=== PATIENT | female | born 1945 | race Caucasian/White ===

== ENCOUNTER → 2020-10-17 10:32 | Outpatient (ROUT) | payer MEDICARE, OTHER, SELFPAY ==
[2020-10-17 10:55] LABS: COVID19 -Nasal RAPID Negative (Negative)
== END ==
PROVIDERS: Visit Provider Physician Assistant
DX: Z20.822 Contact with and (suspected) exposure to COVID-19 (principal)
CPT/HCPCS: 87635

== ENCOUNTER 2023-03-04 16:24 | Emergency (ER) | payer MEDICARE, SELFPAY ==
[2023-03-04 16:36] VITALS: BP 147/74; PULSE 86; RESP 16; TEMP 36.4; O2SAT 98; BMI 21.6
[2023-03-04 18:19] VITALS: BP 128/62; PULSE 76; RESP 18; TEMP 36.8; O2SAT 99
--- NOTE | 2023-03-04 18:54 | ED.SKABFB ---
HPI - Skin/Abscess/Foreign Bdy <Vinh Avery PA-C - Last Filed: 03/04/23 18:59> General Chief complaint: Skin/Abscess/Foreign Body Stated complaint: Rash on R/chest and neck/thinks shingles Time Seen by Provider: 03/04/23 18:25 History of Present Illness HPI narrative: 77-year-old female presents to the ED with a diffuse skin rash on the torso. And complains of 2 days of rash on her bilateral shoulders, right chest, nape of neck. Describes the rash as itchy and dry. No new cosmetics, lotions, detergents. No known allergies. Patient has a history of 3 prior shingles outbreaks and is concerned that she might be having another outbreak this time. Patient took a shingles vaccine 2 weeks ago. Denies mucosal involvement. Denies fevers, chills, nausea, vomiting. Related Data Home Medications Medication Instructions Recorded Confirmed Hydrocodone-APAP PO 10/17/20 metformin PO 10/17/20 simvastatin PO 10/17/20 10/17/20 Previous Rx's Medication Instructions Recorded triamcinolone acetonide 0.025 % 1 applic topical TID #454 grams 03/04/23 topical ointment Allergies Allergy/AdvReac Type Severity Reaction Status Date / Time No Known Drug Allergies Allergy Unverified 10/17/20 10:17 Review of Systems <Vinh Avery PA-C - Last Filed: 03/04/23 18:59> Constitutional Constitutional: Denies chills, Denies fatigue, Denies fever(s), Denies frequent falls, Denies lethargy and Denies weakness Eyes Eyes: Denies change in vision, Denies eye discharge, Denies irritation and Denies loss of vision ENT Ears, Nose, Mouth, and Throat: Denies change in voice, Denies dizziness, Denies neck pain, Denies sore throat and Denies throat swelling Cardiovascular Cardiovascular: Denies chest pain, Denies irregular heart rhythm, Denies lightheadedness, Denies palpitations, Denies dyspnea, Denies dyspnea on exertion and Denies orthopnea Respiratory Respiratory: Denies cough, Denies dyspnea, Denies dyspnea on exertion and Denies wheezing Gastrointestinal Gastrointestinal: Denies abdominal pain, Denies change in bowel habits, Denies diarrhea, Denies nausea and Denies vomiting Musculoskeletal Musculoskeletal: Denies neck pain and Denies numbness Integumentary/Breasts Skin/Breast: Denies pruritus, Denies erythema, Reports rash and Denies wounds Neurologic Neurologic: Denies behavioral changes, Denies confusion, Denies dizziness, Denies frequent falls, Denies loss of vision, Denies numbness and Denies weakness Psychiatric Psychiatric: Denies anxiety, Denies behavioral changes, Denies confusion, Denies depression, Denies homicidal ideation and Denies suicidal ideation Endocrine Endocrine: Denies fatigue, Denies flushing and Denies palpitations Hematologic/Lymphatic Hematologic/Lymphatic: Denies easy bruising Allergic/Immunologic Allergic/Immunologic: Denies urticaria, Denies throat swelling and Denies wheezing Patient History <Vinh Avery PA-C - Last Filed: 03/04/23 18:59> Social History Smoking Status: Former smoker Smoking Status: Former smoker Exam <Vinh Avery PA-C - Last Filed: 03/04/23 18:59> Narrative Exam Narrative: Const General:?cooperative, healthy appearing and comfortable [facility] Head:?normal to inspection Ears:?hearing grossly normal bilaterally Nose:?external nose normal Face and sinus:?normal facial exam and sinuses nontender Mouth:?oral mucosae normal Throat:?posterior oropharynx normal Eyes General:?appearance normal, both eyes and all related structures Neck Neck:?normal visual inspection and no lymphadenopathy noted Resp Effort & Inspection:?normal respiratory effort Auscultation:?clear to auscultation bilaterally Cardio Rate:?regular rate Rhythm:?regular rhythm Integumentary There is a diffuse, discrete, raised, erythematous rash on bilateral shoulders, nape of neck, right chest. Most consistent with contact dermatitis versus atopic rash. No signs of superimposed bacterial infection. Neuro General:?patient alert, patient awake and patient oriented x3 Initial Vital Signs Initial Vital Signs: Vital Signs Temperature 97.6 F 03/04/23 16:36 Pulse Rate 86 03/04/23 16:36 Respiratory Rate 16 03/04/23 16:36 Blood Pressure 147/74 H 03/04/23 16:36 Pulse Oximetry 98 03/04/23 16:36 Oxygen Delivery Method Room Air 03/04/23 16:36 <Janett Allen DO - Last Filed: 03/05/23 13:32> Initial Vital Signs Initial Vital Signs: Vital Signs Temperature 97.6 F 03/04/23 16:36 Pulse Rate 86 03/04/23 16:36 Respiratory Rate 16 03/04/23 16:36 Blood Pressure 147/74 H 03/04/23 16:36 Pulse Oximetry 98 03/04/23 16:36 Oxygen Delivery Method Room Air 03/04/23 16:36 Course <Vinh Avery PA-C - Last Filed: 03/04/23 18:59> Vital Signs Vital signs: Vital Signs - 8 hr 03/04/23 16:36 03/04/23 18:19 Temperature 97.6 F 98.2 F Pulse Rate 86 76 Respiratory Rate 16 18 Blood Pressure 147/74 H 128/62 Pulse Oximetry 98 99 Oxygen Delivery Method Room Air Room Air <Janett Allen DO - Last Filed: 03/05/23 13:32> Vital Signs Vital signs: Vital Signs - 8 hr 03/04/23 16:36 03/04/23 18:19 Temperature 97.6 F 98.2 F Pulse Rate 86 76 Respiratory Rate 16 18 Blood Pressure 147/74 H 128/62 Pulse Oximetry 98 99 Oxygen Delivery Method Room Air Room Air MDM - Skin/Abscess/Foreign Bdy <Vinh Avery PA-C - Last Filed: 03/04/23 18:59> MDM Narrative Medical decision making narrative: 77-year-old female presents to the ED with a diffuse skin rash on the torso. Concern for atopic dermatitis versus contact dermatitis versus other. Given that the rash does not follow a dermatomal distribution, unlikely shingles. Prescribed corticosteroid ointment. Discussed findings with patient. Recommend follow-up with PCP and manufacturing storeperson. ED return precautions were discussed with patient. Patient verbalized understanding. Medical records reviewed: Yes Discharge Plan Departure Patient Disposition: Home Clinical Impression: Rash Instructions: DI for Atopic Dermatitis-Adult Activity Restrictions/Additional Instructions: You were evaluated in the ED today for a rash. You are being prescribed a steroid medication to apply on the rash. Please follow-up with your PCP and manufacturing storeperson if the rash does not improve over the next few days. Return to the ED if you have worsening symptoms. Prescriptions: New triamcinolone acetonide 0.025 % ointment 1 applic topical TID Qty: 454 0RF No Action metformin PO Hydrocodone-APAP PO simvastatin PO Referrals: Miscellaneous,Doctor, [Primary Care Provider] - Stand Alone Forms: Patient Portal/API ED Sign-out <Janett Allen DO - Last Filed: 03/05/23 13:32> Cosign ED Attending Joseline Attestation: I was available for consultation.
--- NOTE | 2023-03-04 19:11 | PC.NURSE ---
Pt evaluated and discharged prior to RN examination.
== END 2023-03-04 19:10 | disposition home or self-care (01) ==
PROVIDERS: Emergency Provider Student in an Organized Health Care Education/Training Program
DX: R21 Rash and other nonspecific skin eruption (principal)
CPT/HCPCS: 99281; 99282

== ENCOUNTER → 2023-10-09 11:25 | Outpatient (CLI) | payer MEDICARE, SELFPAY ==
[2023-10-09 16:40] LABS: Hematocrit 36.6 % (36-46); Hemoglobin 12.5 g/dL (12.0-16.0); Mean Corpuscular Hemoglobin 30.2 PG (26-34); Mean Corpuscular Volume 88.8 fL (80-100); Platelet Count 307 X10^3/uL (150-400); Red Blood Cell Count 4.13 X10^6/uL (4.0-5.2); Red Cell Distribution Width 13.4 % (11.6-14.8); White Blood Cell Count 8.7 X10^3/uL (4.5-11.0)
[2023-10-09 16:47] LABS: Hemoglobin A1C% w Est Avg Glu 7.6 % (4.0-6.0)
[2023-10-09 16:56] LABS: Alanine Aminotransferase 32 IU/L (<35); Albumin 4.1 g/dL (3.5-5.0); Albumin Globulin Ratio 1.4 (1.0-2.8); Alkaline Phosphatase 64 U/L (38-126); Aspartate Aminotransferase 31 IU/L (14-36); BUN Creatinine Ratio 19.8 (6-22); Bilirubin Total 0.7 mg/dL (0.2-1.3); Blood Urea Nitrogen 21 mg/dL (7-17); Calcium 10.5 mg/dL (8.4-10.2); Carbon Dioxide 25 mmol/L (22-32); Chloride 104 mmol/L (98-107); Cholesterol 121 mg/dL (140-199); Estimated Glomerular Filt Rate 54 mL/min (>60); Globulin 2.9 g/dL (1.7-4.1); Glucose 161 mg/dL (80-110); HDL Cholesterol 55 mg/dL (40-60); HEMOLYSIS < 15 (0-50); LDL Cholesterol Calculated 28 mg/dL (<100); Potassium 4.5 mmol/L (3.4-5.1); Sodium 139 mmol/L (137-145); Triglycerides 188 mg/dL (35-150)
[2023-10-09 16:57] LABS: Creatinine Urine Random 211.37 mg/dL
[2023-10-09 17:00] LABS: Microalbumin Urine Random 1.6 mg/dL (0-1.6)
[2023-10-09 17:26] LABS: TSH w/ Reflex to FT4 1.25 uIU/mL (0.47-4.68)
== END ==
PROVIDERS: PCP Internal Medicine; Referring Provider Internal Medicine; Visit Provider Internal Medicine
DX: E11.69 Type 2 diabetes mellitus with other specified complication (principal); E78.5 Hyperlipidemia, unspecified; E78.2 Mixed hyperlipidemia; N18.31 Chronic kidney disease, stage 3a
CPT/HCPCS: 36415; 80053; 80061; 82043; 82570; 83036; 84443; 85027

== ENCOUNTER 2024-01-24 12:41 | Emergency (ER) | payer MEDICARE, SELFPAY ==
[2024-01-24] VITALS (8 sets, daily range): BP systolic 105–153; BP diastolic 60–71; PULSE 74–98; RESP 18; TEMP 36.4; O2SAT 96–98; BMI 25.0
--- NOTE | 2024-01-24 12:47 | ED_ITS ---
HPI - General Adult General Chief complaint: Diabetic Problem Stated complaint: covid+, low blood sugar, diabetic problem Time Seen by Provider: 01/24/24 12:47 History of Present Illness HPI narrative: 78-year-old woman with a history of diabetes and recent diagnosis of COVID currently on day 5 of lo. Medics were out to her house last night with complaints of hypoglycemia. Reportedly she was slow to respond to carbohydrates given. She comes in today and states she has simply not feeling well, fuzzy in the head feels that she can not focus appropriately. Oxygen saturations are 98% on room air. Blood sugar was 173. She notes that with the COVID she has been eating significantly less as she tends to sleep through most of her meals. She also notes that she got a new blood glucose meter and is not sure how to work it. She has not been checking sugars recently because of this. Related Data Home Medications Medication Instructions Recorded Confirmed acetaminophen 500 mg oral powder 500 mg PO Q6H PRN 10/09/23 01/07/24 packet (Tylenol Extra Strength) Previous Rx's Medication Instructions Recorded triamcinolone acetonide 0.025 % 1 applic topical TID #454 grams 03/04/23 topical ointment diphenhydramine HCl 25 mg capsule 25 mg PO TID PRN itching #30 caps 03/22/23 (Benadryl) atorvastatin 80 mg tablet 80 mg PO DAILY #90 tabs 10/09/23 glipizide 5 mg tablet 5 mg PO BID #180 tabs 10/09/23 glipizide 5 mg-metformin 500 mg 1 tab PO BID #180 tabs 10/09/23 tablet blood sugar diagnostic (Blood #50 ea 01/07/24 Glucose Test strips) blood-glucose meter #1 ea 01/07/24 lancets #100 ea 01/17/24 Allergies Allergy/AdvReac Type Severity Reaction Status Date / Time No Known Drug Allergies Allergy Verified 01/24/24 13:01 Review of Systems Review of Systems Narrative: Pertinent positive and negative findings as per HPI Patient History Medical History Stage 3a chronic kidney disease (CKD) History of Clostridioides difficile colitis Onychomycosis Elevated LFTs Proteinuria Mixed hyperlipidemia DM type 2 with diabetic dyslipidemia Social History details: Partner (Leonides/John Luo), 1 son, retired women's ministry director Smoking Status: Former smoker Smoking Status: Former smoker Exam Initial Vital Signs Initial Vital Signs: Vital Signs Temperature 97.5 F L 01/24/24 12:41 Pulse Rate 98 H 01/24/24 12:41 Respiratory Rate 18 01/24/24 12:41 Blood Pressure 153/71 H 01/24/24 12:41 Pulse Oximetry 98 01/24/24 12:41 Oxygen Delivery Method Room Air 01/24/24 12:41 General: in no acute distress. Able to give a complete and coherent history. Well-nourished well-developed HEENT: Moist mucous membranes, normal sclera with reactive pupils, Respiratory: Lungs are clear to auscultation, no wheezing no rales no rhonchi. Full and symmetrical air movement Cardiac: Regular rate and rhythm no murmurs no bruits Abdomen: Soft, nontender, good bowel tones, no flank pain Skin: Warm and dry, no rashes Neurologic: Grossly neurologically intact with no obvious asymmetries or abnormalities Extremities: No trauma, well perfused, no lower extremity edema Psych: Cooperative, appropriate insight and affect Course Orders Ordered: ED Orders 01/24/24 12:56 XR chest 1V Stat Urinalysis and Microscopic Stat 01/24/24 13:00 Complete Blood Count AUTO DIFF Stat Comprehensive Metabolic Panel Stat NT-proBNP (BNP-Adult 18+) Stat Troponin I Stat Vital Signs Vital signs: Vital Signs - 8 hr 01/24/24 12:41 01/24/24 13:28 01/24/24 13:30 Temperature 97.5 F L Pulse Rate 98 H 79 75 Respiratory Rate 18 Blood Pressure 153/71 H Pulse Oximetry 98 96 97 Oxygen Delivery Method Room Air 01/24/24 13:31 01/24/24 13:31 01/24/24 14:00 Temperature Pulse Rate 78 Respiratory Rate Blood Pressure 105/60 125/64 Pulse Oximetry 97 Oxygen Delivery Method 01/24/24 14:00 01/24/24 14:30 01/24/24 14:30 Temperature Pulse Rate 75 75 Respiratory Rate Blood Pressure 124/63 Pulse Oximetry 96 96 Oxygen Delivery Method Medical Decision Making Lab Data 01/24/24 13:00 01/24/24 13:00 Labs: Lab Results 01/24/24 Range/Units 13:00 WBC 5.7 (4.5-11.0) X10^3/uL RBC 4.33 (4.0-5.2) X10^6/uL Hgb 12.8 (12.0-16.0) g/dL Hct 38.5 (36-46) % MCV 88.9 (80-100) fL MCH 29.6 (26-34) PG MCHC 33.3 (30-36) % RDW 13.2 (11.6-14.8) % Plt Count 291 (150-400) X10^3/uL Neut % (Auto) 59.2 (50-75) % Lymph % (Auto) 30.0 (25-40) % Steele % (Auto) 9.0 (3-14) % Eos % (Auto) 1.4 L (2-4) % Baso % (Auto) 0.4 (0-2) % Neut # (Auto) 3400 (8825-7882) /uL Lymph # (Auto) 1700 (3724-2561) /uL Steele # (Auto) 500 (0-900) /uL Eos # (Auto) 100 (0-450) /uL Baso # (Auto) 0 (0-100) /uL Sodium 138 (137-145) mmol/L Potassium 3.8 (3.4-5.1) mmol/L Chloride 101 (98-107) mmol/L Carbon Dioxide 28 (22-32) mmol/L BUN 18 H (7-17) mg/dL Creatinine 1.12 H (0.52-1.04) mg/dL Estimated GFR 51 L (>60) mL/min BUN/Creatinine Ratio 16.1 (6-22) Glucose 172 H (80-110) mg/dL Calcium 10.3 H (8.4-10.2) mg/dL Total Bilirubin 0.6 (0.2-1.3) mg/dL AST 37 H (14-36) IU/L ALT 35 H (<35) IU/L Alkaline Phosphatase 58 (38-126) U/L Troponin I < 0.012 (0.01-0.034) ng/mL NT-Pro-B Natriuret Pep 34 (<450) pg/mL Total Protein 7.1 (6.3-8.2) g/dL Albumin 4.3 (3.5-5.0) g/dL Globulin 2.8 (1.7-4.1) g/dL Albumin/Globulin Ratio 1.5 (1.0-2.8) MDM Narrative Medical decision making narrative: CC: Low blood sugars, fuzzy feeling Complicating co-morbidities: On day 5 of Paxlovid for COVID diagnosis, he has never had a low blood sugar before last night, has been taking normal amounts of glipizide and Glucophage with significant decreased intake due to loss of appetite with the COVID, new blood sugar monitor that she has not been able to use Data collected from: patient, Medical records reviewed: Primary care notes reviewing diabetes and hyperlipidemia are reviewed Differential considered: Fatigue secondary to COVID, medication interactions, decreased oral intake and lower blood sugars Exam documented above, pertinent findings include: Patient appears fatigued but is not acutely ill. No signs of stroke. Lab Test results independently reviewed as above. Pertinent findings: CBC is unremarkable Chemistries show mild bump in creatinine from 1-1.12, glucose is at 172, AST and ALT are At 37 and 35 respectively. Troponin is undetectable ProBNP is low Imaging studies independently reviewed: Chest x-ray is unremarkable Treatments: We asked patient to bring in her blood glucose monitoring and she and her were both instructed on its use Discussion: 78-year-old woman with COVID, last day of Paxlovid, fuzzy feeling in her head with no acute abnormalities otherwise appreciated. Electrolytes are unremarkable. There was no sign of bacterial secondary infection no signs of impending respiratory distress and no suggested of lobar pneumonia. I suspect that the minimal eating that she has had over the last couple of days with religiously taking her medications as prescribed as what caused the episode of hypoglycemia last night we will ask her to either eat more or hold her evening dose of glipizide until she is feeling better. Findings reviewed with the patient, questions are answered there was no indication for additional imaging or hospitalization and she is safe for discharge Discharge Plan Departure Patient Disposition: Home Clinical Impression: COVID-19, Hypoglycemia associated with diabetes Fatigue Qualifiers: Fatigue type: unspecified Qualified Code(s): R53.83 - Other fatigue Activity Restrictions/Additional Instructions: Thank you for coming in today I think that you are feeling yucky because you have been sick with COVID, you are taking Paxlovid, you have not been eating enough and you had an episode of low blood sugar because of all of those. I am not seeing any evidence of bacterial infection, severe COVID infection that would require oxygen or hospitalization, heart attack, kidney problems, liver problems, electrolyte abnormalities. Until you are feeling better and back to regular eating, please do not take your nighttime glipizide. Do continue the rest of your medications I hope we were able to help you better understand your blood glucose monitor so you are able to regularly check your sugars If you find that you are getting worse or develop any new symptoms, please feel free to return to the emergency department for further evaluation. Prescriptions: No Action diphenhydramine HCl [Benadryl] 25 mg capsule 25 mg PO TID PRN (Reason: itching) Qty: 30 0RF (DME) lancets Misc See Rx Instructions .Route Qty: 100 3RF Rx Instructions: to check blood sugar daily Tylenol Extra Strength 500 mg powder in packet 500 mg PO Q6H PRN glipizide-metformin 5-500 mg tablet 1 tab PO BID Qty: 180 3RF glipizide 5 mg tablet 5 mg PO BID Qty: 180 3RF atorvastatin 80 mg tablet 80 mg PO DAILY Qty: 90 3RF (DME) blood-glucose meter Misc See Rx Instructions .Route Qty: 1 0RF Rx Instructions: check BG daily (DME) Blood Glucose Test Strip See Rx Instructions .Route Qty: 50 2RF Rx Instructions: check BG daily triamcinolone acetonide 0.025 % ointment 1 applic topical TID Qty: 454 0RF Referrals: Jose Gonzales MD [Primary Care Provider] - Stand Alone Forms: Patient Portal/API/Survey
--- NOTE | 2024-01-24 12:56 | DI.RAD.S_ITS ---
PROCEDURE: XR CHEST 1V INDICATIONS: covid+ TECHNIQUE: One view of the chest was acquired. COMPARISON: None. FINDINGS: Surgical changes and devices: None. Lungs and pleura: Lungs are clear. No pleural effusions or pneumothorax. Mediastinum: Mediastinal contours appear normal. Heart size is normal. Bones and chest wall: No suspicious bony lesions. Overlying soft tissues appear unremarkable. IMPRESSION: No acute cardiopulmonary abnormality is seen. Dictated by: Suhail Roberson M.D. on 01/24/2024 at 13:28 Approved by: Suhail Roberson M.D. on 01/24/2024 at 13:28
[2024-01-24 13:12] LABS: Add Manual Diff / Slide Review NO; Basophils Absolute Auto 0 /uL (0-100); Basophils Percent Auto 0.4 % (0-2); Eosinophils Absolute Auto 100 /uL (0-450); Eosinophils Percent Auto 1.4 % (2-4); Hematocrit 38.5 % (36-46); Hemoglobin 12.8 g/dL (12.0-16.0); Lymphocytes Absolute Auto 1700 /uL (1100-4500); Mean Corpuscular HGB Conc 33.3 % (30-36); Mean Corpuscular Hemoglobin 29.6 PG (26-34); Mean Corpuscular Volume 88.9 fL (80-100); Monocytes Absolute Auto 500 /uL (0-900); Neutrophils Absolute Auto 3400 /uL (1500-7000); Neutrophils Percent Auto 59.2 % (50-75); Platelet Count 291 X10^3/uL (150-400); Red Blood Cell Count 4.33 X10^6/uL (4.0-5.2); Red Cell Distribution Width 13.2 % (11.6-14.8); White Blood Cell Count 5.7 X10^3/uL (4.5-11.0)
[2024-01-24 13:22] LABS: Alanine Aminotransferase 35 IU/L (<35); Albumin 4.3 g/dL (3.5-5.0); Albumin Globulin Ratio 1.5 (1.0-2.8); Alkaline Phosphatase 58 U/L (38-126); Aspartate Aminotransferase 37 IU/L (14-36); BUN Creatinine Ratio 16.1 (6-22); Bilirubin Total 0.6 mg/dL (0.2-1.3); Blood Urea Nitrogen 18 mg/dL (7-17); Calcium 10.3 mg/dL (8.4-10.2); Carbon Dioxide 28 mmol/L (22-32); Chloride 101 mmol/L (98-107); Estimated Glomerular Filt Rate 51 mL/min (>60); Globulin 2.8 g/dL (1.7-4.1); Glucose 172 mg/dL (80-110); HEMOLYSIS < 15 (0-50); Potassium 3.8 mmol/L (3.4-5.1); Sodium 138 mmol/L (137-145); Total Protein 7.1 g/dL (6.3-8.2)
[2024-01-24 13:34] LABS: NT-proBNP (BNP-Adult 18+) 34 pg/mL (<450); Troponin I < 0.012 ng/mL (0.01-0.034)
--- NOTE | 2024-01-24 15:37 | PC.NURSE ---
Provided extensive education for pt on how to insert lancet needle. Taught spouse and pt to insert test strip, clean site and poke finger with lancet. BG was 107. Educated pt and spouse who states we look for the number 6, and if its 6 we are good. Educated pt on a good blood glucose level between 80-120 and symptoms of hypo and hyperglycemia. Pt's spouse able to return teach glucose level between 80-120. Pt and spouse state she has an appt to be seen by PCP. I informed pt to request additional diabetes education with her PCP. Pt expressed understanding.
== END 2024-01-24 15:42 | disposition home or self-care (01) ==
PROVIDERS: Emergency Provider Emergency Medicine; PCP Internal Medicine
DX: E11.649 Type 2 diabetes mellitus with hypoglycemia without coma (principal); U07.1 COVID-19; R53.83 Other fatigue; Z79.84 Long term (current) use of oral hypoglycemic drugs
CPT/HCPCS: 36415; 71045; 80053; 82962; 83880; 84484; 85025; 99283; 99284

== ENCOUNTER → 2024-01-29 10:59 | Outpatient (CLI) | payer MEDICARE, SELFPAY ==
[2024-01-29 12:33] LABS: Hemoglobin A1C% w Est Avg Glu 7.3 % (4.0-6.0)
[2024-01-29 12:43] LABS: BUN Creatinine Ratio 19.1 (6-22); Blood Urea Nitrogen 17 mg/dL (7-17); Calcium 10.6 mg/dL (8.4-10.2); Carbon Dioxide 27 mmol/L (22-32); Chloride 102 mmol/L (98-107); Estimated Glomerular Filt Rate > 60 mL/min (>60); Glucose 118 mg/dL (80-110); HEMOLYSIS < 15 (0-50); Potassium 4.6 mmol/L (3.4-5.1); Sodium 137 mmol/L (137-145)
== END ==
PROVIDERS: PCP Internal Medicine; Referring Provider Physician Assistant; Visit Provider Physician Assistant
DX: E11.22 Type 2 diabetes mellitus with diabetic chronic kidney disease (principal); N18.31 Chronic kidney disease, stage 3a; E78.5 Hyperlipidemia, unspecified
CPT/HCPCS: 36415; 80048; 83036

== ENCOUNTER → 2024-03-24 16:22 | Outpatient (CLI) | payer MEDICARE, SELFPAY ==
--- NOTE | 2024-03-24 16:24 | DI.MG.S_ITS ---
BILATERAL DIGITAL SCREENING MAMMOGRAM 3D/2D WITH CAD: 03/24/2024 Comparison is made to exam dated: 12/27/2022 mammogram - outside location. The breasts are heterogeneously dense, which may obscure small masses (category c / 51-75% glandular tissue). Current study was also evaluated with a Computer Aided Detection (CAD) system. There are benign calcifications in both breasts. No significant masses, calcifications, or other findings are seen in either breast. There has been no significant interval change. IMPRESSION: BENIGN There is no mammographic evidence of malignancy. A 1 year screening mammogram is recommended. Based on the Tyrer Cuzick model (a risk assessment model) the patient's lifetime risk is 7.6% and her 10 year risk is 0.0%. According to the ACR, ACS, and NCCN guidelines, an annual breast MRI exam along with mammogram is recommended if the patient's lifetime risk is 20% or greater. This exam was interpreted at Station ID: [id number]. NOTE: For mammograms, a report in lay terms will be sent to the patient. Approximately 15% of breast malignancies will not be visualized mammographically. In the management of a palpable breast mass, a negative mammogram must not discourage biopsy of a clinically suspicious lesion. Electronically Signed By: Shahbaz ortiz/silva:03/25/2024 18:05:30 letter sent: Normal Exam ACR BI-RADS Category 2: Benign
== END ==
PROVIDERS: PCP Internal Medicine; Referring Provider Internal Medicine; Visit Provider Internal Medicine
DX: Z12.31 Encounter for screening mammogram for malignant neoplasm of breast (principal); R92.333 Mammographic heterogeneous density, bilateral breasts
CPT/HCPCS: 77063; 77067

== ENCOUNTER → 2024-05-06 11:11 | Outpatient (CLI) | payer MEDICARE, SELFPAY ==
[2024-05-06 12:44] LABS: Creatinine Urine Random 86.53 mg/dL
[2024-05-06 12:48] LABS: Microalbumin Urine Random 0.7 mg/dL (0-1.6)
[2024-05-06 12:51] LABS: BUN Creatinine Ratio 13.6 (6-22); Blood Urea Nitrogen 16 mg/dL (7-17); Carbon Dioxide 23 mmol/L (22-32); Chloride 104 mmol/L (98-107); Estimated Glomerular Filt Rate 48 mL/min (>60); Glucose 136 mg/dL (80-110); HEMOLYSIS < 15 (0-50); Potassium 4.1 mmol/L (3.4-5.1); Sodium 139 mmol/L (137-145)
[2024-05-07 08:36] LABS: Rubeola Measles IgG > 300.0 AU/mL (Immune >16.4)
[2024-05-07 15:27] LABS: Rubella Antibody IgG 77.7 IU/mL (>15)
== END ==
PROVIDERS: PCP Internal Medicine; Referring Provider Internal Medicine; Visit Provider Internal Medicine
DX: E11.65 Type 2 diabetes mellitus with hyperglycemia (principal); E11.69 Type 2 diabetes mellitus with other specified complication; E78.5 Hyperlipidemia, unspecified; R80.9 Proteinuria, unspecified; Z20.9 Contact with and (suspected) exposure to unspecified communicable disease
CPT/HCPCS: 36415; 80048; 82043; 82570; 83036; 86735; 86762; 86765

== ENCOUNTER → 2024-05-18 11:37 | Outpatient (CLI) | payer MEDICARE, SELFPAY ==
--- NOTE | 2024-05-18 11:38 | DI.RAD.S_ITS ---
PROCEDURE: XR DEXA AXIAL SKELETON INDICATIONS: screening COMPARISON: None. FINDINGS: Lumbar Spine: Bone mineral density 1.1 g/cm2, T score 0.8, (L1-L3). Left Femoral Neck: Bone mineral density 0.8 g/cm2, T score -0.4. Left Hip: Bone mineral density 1.0 g/cm2, T score 0.5,. Fracture Risk Calculation (when applicable): Not applicable (T score greater or equal to -1.0 to: NORMAL) (T score from -1.1 to -2.4: OSTEOPENIA) (T score less than or equal to -2.5: OSTEOPOROSIS) IMPRESSION: T-scores are within normal limits. Follow-up guidelines as follows: Osteoporosis: Consider a repeat DEXA and Vertebral Fracture Assessment (VFA) exam in 2 years or sooner if medically necessary, to reassess this patient's status. Osteopenia: Consider a repeat DEXA in 2-3 years to reassess this patient's status, or if there is a new clinical indication. Normal: Consider a repeat DEXA in 5 years or sooner, or if there is a new clinical indication. All treatment decisions require clinical judgment and consideration of individual patient factors, including patient preferences, comorbidities, previous drug use, risk factors not captured in the FRAX model (e.g., frailty, falls, vitamin D deficiency, increased bone turnover, interval significant decline in bone density ) and possible under- or over-estimation of fracture risk by FRAX. In addition, the NOF Guide recommends that FDA-approved medical therapies be considered in postmenopausal women and men age >= 50 years with a: * Hip or vertebral (clinical or morphometric) fracture * T-score of <=-2.5 at the spine or hip * Ten-year fracture probability by FRAX of >= 3% for hip fracture or >=20% for major osteoporotic fracture. Dictated by: Santo Lorenzana M.D. on 05/18/2024 at 17:13 Approved by: Santo Lorenzana M.D. on 05/18/2024 at 17:13
== END ==
PROVIDERS: PCP Internal Medicine; Referring Provider Internal Medicine; Visit Provider Internal Medicine
DX: M85.89 Other specified disorders of bone density and structure, multiple sites (principal)
CPT/HCPCS: 77080

== ENCOUNTER → 2024-11-05 11:09 | Outpatient (CLI) | payer MEDICARE, SELFPAY ==
[2024-11-05 12:15] LABS: Hematocrit 41.2 % (36-46); Hemoglobin 13.8 g/dL (12.0-16.0); Mean Corpuscular HGB Conc 33.4 % (30-36); Mean Corpuscular Hemoglobin 30.0 PG (26-34); Mean Corpuscular Volume 89.7 fL (80-100); Platelet Count 316 X10^3/uL (150-400)
[2024-11-05 12:22] LABS: Hemoglobin A1C% w Est Avg Glu 7.5 % (4.0-6.0)
[2024-11-05 12:39] LABS: Alanine Aminotransferase 45 IU/L (<35); Albumin 4.6 g/dL (3.5-5.0); Albumin Globulin Ratio 1.6 (1.0-2.8); Alkaline Phosphatase 72 U/L (38-126); Blood Urea Nitrogen 19 mg/dL (7-17); Calcium 10.5 mg/dL (8.4-10.2); Carbon Dioxide 26 mmol/L (22-32); Chloride 104 mmol/L (98-107); Cholesterol 114 mg/dL (140-199); Estimated Glomerular Filt Rate > 60 mL/min (>60); Globulin 2.8 g/dL (1.7-4.1); Glucose 121 mg/dL (70-99); HDL Cholesterol 76 mg/dL (40-60); HEMOLYSIS < 15 (0-50); Potassium 4.9 mmol/L (3.4-5.1); Sodium 140 mmol/L (137-145); Total Protein 7.4 g/dL (6.3-8.2); Triglycerides 86 mg/dL (35-150)
[2024-11-05 13:06] LABS: TSH w/ Reflex to FT4 1.04 uIU/mL (0.47-4.68)
== END ==
PROVIDERS: PCP Internal Medicine; Referring Provider Internal Medicine; Visit Provider Internal Medicine
DX: E78.2 Mixed hyperlipidemia (principal); E11.22 Type 2 diabetes mellitus with diabetic chronic kidney disease; N18.31 Chronic kidney disease, stage 3a
CPT/HCPCS: 36415; 80053; 80061; 83036; 84443; 85027

== ENCOUNTER → 2024-12-21 18:37 | Outpatient (CLI) | payer MEDICARE, SELFPAY ==
--- NOTE | 2024-12-21 18:40 | DI.MRI.S_ITS ---
PROCEDURE: MR STROKE INDICATIONS: tia TECHNIQUE: Brain: Noncontrast axial T1 spin echo, axial T2 fast spin echo, sagittal and axial FLAIR, coronal T2 fast spin echo, axial gradient echo, axial diffusion and ADC through the brain. MR angiogram: Noncontrast axial 3D [id number] MR angiogram, with maximum intensity projection reformats of the internal carotid arteries and posterior circulation then performed. 20 cc ProHance IV contrast. MRA images obtained of the head neck. COMPARISON: None. FINDINGS: Image quality: Excellent. BRAIN: CSF Spaces: Basal cisterns are patent. No extra-axial fluid collections. Ventricles are normal in size and shape. Brain: No midline shift. No intracranial bleeds or mass effects. The brainstem appears normal. Leyva/white matter interface appears normal. Diffusion-weighted images demonstrate no acute ischemic insult. No chronic ischemic insults. Normal intravascular flow voids are present. Skull and face: Calvarium has normal marrow signal. Orbits appear normal. Sinuses: Sinuses and mastoids are clear. BRAIN MR ANGIOGRAM: Anterior circulation: Intracranial internal carotid arteries demonstrate normal size and intraluminal flow signal. The flow within the paired anterior cerebral arteries is normal and symmetric. The flow within the middle cerebral arteries is normal and symmetric. The anterior communicating artery is seen. No stenoses, occlusions, or aneurysms. Posterior circulation: The visualized vertebral arteries demonstrate normal caliber, and join to form a normal appearing basilar artery. The flow within the posterior cerebral arteries is normal and symmetric. Note is made of normal appearing posterior cerebral arteries. No stenoses, occlusions, or aneurysms. NECK MR ANGIOGRAM: A bovine origin of the left CCA, variant. No high-grade stenosis is identified. The CCA, ICA, and vertebral arteries are patent. Degenerative changes in the cervical spine. IMPRESSION: 1. No acute infarct. 2. No large vessel filling defect. 3. No critical stenosis in the neck. Dictated by: Payam Marmolejo M.D. on 12/21/2024 at 20:14 Approved by: Payam Marmolejo M.D. on 12/21/2024 at 20:23
== END ==
LOC: MRI 18:39
PROVIDERS: PCP Internal Medicine; Referring Provider Internal Medicine; Visit Provider Internal Medicine
DX: I67.9 Cerebrovascular disease, unspecified (principal)
CPT/HCPCS: 70544; 70549; 70553; A9579

== ENCOUNTER → 2025-01-07 15:10 | Outpatient (CLI) | payer MEDICARE, SELFPAY | LOC: CAR 15:12 | PROVIDERS: PCP Internal Medicine; Referring Provider Internal Medicine; Visit Provider Internal Medicine | DX: Z86.73 Personal history of transient ischemic attack (TIA), and cerebral infarction without residual deficits (principal) | CPT/HCPCS: 93246 ==